=== PATIENT | female | born 1955 | race Caucasian/White ===

== ENCOUNTER → 2024-04-27 14:23 | Outpatient (REF) | payer OTHER, SELFPAY | LOC: MRI 3T 14:23 | PROVIDERS: ATTENDING PHYSICIAN Family Medicine; FAMILY PHYSICIAN Family Medicine | DX: R42 Dizziness and giddiness (principal) | CPT/HCPCS: 70553; A9575 ==

== ENCOUNTER → 2024-05-09 08:14 | Outpatient (REF) | payer OTHER, SELFPAY | LOC: WDC 08:14 | PROVIDERS: ATTENDING PHYSICIAN Family Medicine | DX: Z12.31 Encounter for screening mammogram for malignant neoplasm of breast (principal) | CPT/HCPCS: 77063; 77067 ==

== ENCOUNTER → 2025-04-17 14:12 | Outpatient (REF) | payer OTHER, SELFPAY | LOC: RAD 14:12 | PROVIDERS: ATTENDING PHYSICIAN Family Medicine | DX: R63.5 Abnormal weight gain (principal); G54.0 Brachial plexus disorders; R14.0 Abdominal distension (gaseous); R10.11 Right upper quadrant pain; R20.0 Anesthesia of skin | CPT/HCPCS: 76700; 95886; 95911 ==

== ENCOUNTER → 2025-05-15 11:31 | Outpatient (REF) | payer OTHER, SELFPAY | LOC: RAD 11:31 | PROVIDERS: ATTENDING PHYSICIAN Family Medicine | DX: R10.11 Right upper quadrant pain (principal) | CPT/HCPCS: 74177; Q9967 ==

== ENCOUNTER → 2025-05-19 08:27 | Outpatient (REF) | payer OTHER, SELFPAY | LOC: RAD 08:27 | PROVIDERS: ATTENDING PHYSICIAN Internal Medicine Rheumatology | DX: M81.0 Age-related osteoporosis without current pathological fracture (principal) | CPT/HCPCS: 77080 ==